=== PATIENT | female | born 1990 | race Caucasian/White ===

== ENCOUNTER 2022-03-07 23:33 | Emergency (ER) | payer MEDICAID ==
[~2022-03-07] VITALS: Ht 152.4 cm; Wt 63.5 kg
[2022-03-07 23:42] VITALS: BP 110/73
[2022-03-08] MEDS: PANTOPRAZOLE 40 MG TABEC PO ONE (00:20)
[2022-03-08] MEDS: IBUPROFEN 800 MG TAB PO ONE (00:21)
[2022-03-08] MEDS ORDERED: PANT40EC PO (00:30)
[2022-03-08 01:50] VITALS: BP 110/73
== END 2022-03-08 01:50 | disposition home or self-care (01) ==
LOC: MED 23:33
DX: R07.89 Other chest pain (principal); Z79.899 Other long term (current) drug therapy
CPT/HCPCS: 71045; 93005; 99283; Q0092